=== PATIENT | female | born 2000 | race Caucasian/White ===

== ENCOUNTER → 2020-02-29 | Outpatient (REF) | payer OTHER ==
[~2020-02-29] MED LIST: CETI10CH PO; NORE1TAB7 PO
== END ==
LOC: M LAB REF 12:00
PROVIDERS: ATTEND Physician Assistant
DX: Z20.828 Contact with and (suspected) exposure to other viral communicable diseases (principal); J02.9 Acute pharyngitis, unspecified

== ENCOUNTER 2020-03-22 20:44 | Emergency (ER) | payer OTHER ==
[~2020-03-22] VITALS: Ht 162.6 cm; Wt 75.5 kg
[2020-03-22] MEDS ORDERED: NORE1TAB7 PO (20:51)
[2020-03-22] MEDS ORDERED: CETI10CH PO (20:51)
[2020-03-22] MEDS ORDERED: dexameTHASONE 20MG/5ML VIAL (J1100 PER 1MG) IM ONE (21:45)
[2020-03-22 21:57] VITALS: BP 138/77
== END 2020-03-22 22:01 | disposition home or self-care (01) ==
LOC: M ED 20:44
DX: T78.40XA Allergy, unspecified, initial encounter (principal); Z88.0 Allergy status to penicillin; Z91.013 Allergy to seafood
CPT/HCPCS: 96372; 99283; J1100

== ENCOUNTER 2025-05-14 09:08 | Emergency (ER) | payer OTHER ==
[~2025-05-14] VITALS: Ht 162.6 cm; Wt 62.0 kg
[2025-05-14] MEDS ORDERED: DUPI300P (09:19)
[2025-05-14] MEDS: SUCRALFATE SUSP 1GM/10ML UD PO ONE (11:00)
[2025-05-14 11:21] LABS: BASO # 0.1 10^3/uL (0.0-0.2); BASO % 0.6 % (0.0-1.0); EOS # 0.1 10^3/uL (0.0-0.5); EOS % 1.7 % (0.0-3.0); LYMPH # 2.3 10^3/uL (1.5-5.0); LYMPH % 29.6 % (24.0-44.0); MONO # 0.7 10^3/uL (0.0-0.8); MONO % 8.4 % (2.0-8.0); NEUTROPHILS # 4.6 10^3/uL (1.5-8.5); NEUTROPHILS % 59.6 % (36.0-66.0); PLATELET COUNT, AUTOMATED 218 10^3/uL (150-450)
[2025-05-14 11:44] LABS: CALCIUM LEVEL 9.1 MG/DL (8.5-10.1); CARBON DIOXIDE LEVEL 25 MMOL/L (20-31); CHLORIDE LEVEL 104 MMOL/L (98-107); CK-MB VALUE MASS < 1.0 NG/ML (<3.6); CPK CREATINE PHOSPHOKINASE 54 U/L (34-145); CREATININE FOR GFR 0.69 MG/DL (0.55-1.30); GLOMERULAR FILTRATION RATE > 90.0 (>60); POTASSIUM SERUM 3.8 MMOL/L (3.5-5.1); SODIUM LEVEL 140 MMOL/L (136-145)
[2025-05-14 11:48] LABS: HCG, SERUM QUALITATIVE NEGATIVE (NEGATIVE)
[2025-05-14] MEDS: NS (Normal Saline) 0.9% 1,000 ML IV ONE (13:23)
[2025-05-14] MEDS ORDERED: ISOVUE-370 76% 100 ML VIAL As Ordered ONE (14:00)
[2025-05-14 15:16] VITALS: TEMP 97.7; O2SAT 100
[2025-05-14] MEDS ORDERED: PROT20TA11 PO (15:28)
[2025-05-14 15:30] VITALS: BP 102/65
== END 2025-05-14 15:46 | disposition home or self-care (01) ==
LOC: M ED 09:08
DX: R07.9 Chest pain, unspecified (principal); I45.10 Unspecified right bundle-branch block; K21.9 Gastro-esophageal reflux disease without esophagitis; L20.9 Atopic dermatitis, unspecified; Z79.899 Other long term (current) drug therapy; Z88.0 Allergy status to penicillin; Z91.013 Allergy to seafood; Z91.09 Other allergy status, other than to drugs and biological substances
CPT/HCPCS: 36415; 71275; 80048; 82550; 82553; 84484; 84703; 85025; 85379; 93005; 99285; Q9967